=== PATIENT | female | born 1990 | race Caucasian/White ===

== ENCOUNTER 2021-02-23 07:11 | Inpatient (IN) ==
[~2021-02-23 07:11] MED LIST: Azithromycin 500 MG in 0.9 % Sodium Chloride 250 ML IVPB PRN; Famotidine 20 MG/2 ML VIAL IVP PRN; Metoclopramide 10 MG/2 ML VIAL IVP PRN; Naloxone 0.4 MG/ML INJ IVP PRN; Ondansetron 4 MG/2 ML VIAL IVP PRN
[2021-02-23] MEDS ORDERED: ceFAZolin 2,000 MG in 0.9 % Sodium Chloride 100 ML IVPB STA (07:15)
[2021-02-23] MEDS ORDERED: Ringers Solution, Lactated 1,000 ML IVC SCH (07:15)
[2021-02-23] MEDS ORDERED: Oxytocin 20 units/ LR 1000 mL 20 UNIT/1,000 ML BAG IVC SCH ×2 (07:15→11:20)
[2021-02-23] MEDS ORDERED: Lidocaine -MPF 2% 5 ML VIAL ONE (07:20)
[2021-02-23] MEDS ORDERED: *HR* Succinylcholine 200 MG/10 ML VIAL IVP ONE (07:20)
[2021-02-23] MEDS ORDERED: *HR* Propofol 200 MG/20 ML VIAL IVP ONE (07:21)
[2021-02-23] MEDS ORDERED: *HR* FentaNYL (PF) 100 MCG/2 ML VIAL ONE (07:21)
[2021-02-23 07:25] LABS: Basophils # 0.1 K/mcL (0.0-0.2); Basophils % 0.3 %; Eosinophils # 0.1 K/mcL (0.0-0.6); Eosinophils % 0.7 %; Hematocrit 43.1 % (35.3-44.9); Hemoglobin 14.9 g/dL (11.5-15.4); Immature Granulocytes % 0.6 % (0-4); Lymphocytes # 4.5 K/mcL (0.6-4.6); Lymphocytes % 24.6 %; Mean Corpuscular HGB Conc 34.6 g/dL (31.6-35.5); Mean Corpuscular Hemoglobin 31.2 pg (28.0-33.3); Mean Corpuscular Volume 90.4 fL (83.0-100.0); Mean Platelet Volume 10.3 fL (9.4-12.4); Monocytes # 1.1 K/mcL (0.0-1.3); Monocytes % 6.2 %; Neutrophils # 12.4 K/mcL (1.6-8.9); Platelet Count 368 K/mcL (140-400); Red Blood Count 4.77 M/mcL (3.82-4.97); Red Cell Distribution Width 12.9 % (11.5-14.5); Segmented Neutrophils % 67.6 %; White Blood Count 18.4 K/mcL (4.3-11.1)
[2021-02-23] MEDS ORDERED: *HR* Oxytocin 10 UNIT/ML VIAL ONE (07:32)
[2021-02-23] MEDS ORDERED: Ringers Solution, Lactated 1,000 ML ONE (07:32)
[2021-02-23] MEDS ORDERED: Acetaminophen IV 1,000 MG/100 ML BAG IVPB ONE (07:39)
[2021-02-23] MEDS ORDERED: Ketorolac 30 MG/ML VIAL ONE (07:49)
[2021-02-23] MEDS ORDERED: *HR* HYDROMORPHONE 2 MG/ML VIAL ONE (07:56)
[2021-02-23] MEDS ORDERED: Ondansetron 4 MG/2 ML VIAL IVP PRN ×2 (08:04→11:20)
[2021-02-23] MEDS ORDERED: *HR* HYDROmorphone PF 0.5 MG/0.5 ML SYRINGE IVP PRN (08:04)
[2021-02-23] MEDS ORDERED: NIFEdipine Immed Rel 10 MG CAPSULE PO ONE (08:47)
[2021-02-23] MEDS ORDERED: Metoclopramide 10 MG/2 ML VIAL IVP PRN (11:20)
[2021-02-23] MEDS ORDERED: Rho Immune Globulin 1,500 UNIT SYRINGE IM ONE (11:20)
[2021-02-23] MEDS ORDERED: *HR* OxyCODONE Immed Rel 5 MG TABLET PO PRN (11:20)
[2021-02-23 11:26] LABS: Alanine Aminotransferase 27 Units/L (7-52); Aspartate Amino Transferase 30 Units/L (13-39); BUN/Creatinine Ratio 11 (6-26); Blood Urea Nitrogen 9 mg/dL (6-20); Lactate Dehydrogenase 220 Units/L (140-271); eGFR For African Americans > 60 (> 60); eGFR For Non-African Americans > 60 (> 60)
[2021-02-23 12:52] LABS: Amphetamine Screen,Urine Negative ng/mL (Cutoff=1000); Barbiturate Screen,Urine Negative ng/mL (Cutoff=200); Benzodiazepines Screen,Urine Negative ng/mL (Cutoff=200); Cannabinoid Screen,Urine Negative ng/mL (Cutoff = 50); Cocaine Screen,Urine Negative ng/mL (Cutoff= 300); Opiate Screen,Urine Negative ng/mL (Cutoff=300); Phencyclidine Screen,Urine Negative ng/mL (Cutoff=25); Protein/Creatinine Ratio,Urine 0.14 mg/mg (0.00-0.20)
[2021-02-23 13:31] LABS: Influenza A PCR Negative (Negative); Influenza B PCR Negative (Negative); Resp. Syncytial Virus PCR Negative (Negative); SARS-CoV-2 by PCR (In House) Negative (Negative)
[2021-02-23] MEDS: Ibuprofen 600 MG TABLET PO SCH ×2 (15:08→20:21)
[2021-02-23] MEDS: cephALEXin 500 MG CAPSULE PO SCH ×2 (15:08→20:21)
[2021-02-23] MEDS: Acetaminophen 325 MG TABLET PO SCH ×2 (15:08→20:22)
[2021-02-23] MEDS: metroNIDAZOLE 500 MG TABLET PO SCH ×2 (15:09→20:21)
[2021-02-23] MEDS: Simethicone 80 MG TAB.CHEW PO PRN (20:20)
[2021-02-24] MEDS: Acetaminophen 325 MG TABLET PO SCH ×4 (03:47→22:33)
[2021-02-24] MEDS: Ibuprofen 600 MG TABLET PO SCH ×4 (03:47→22:33)
[2021-02-24 04:10] LABS: Basophils % 0.1 %; Eosinophils % 0.1 %; Hematocrit 34.2 % (35.3-44.9); Immature Granulocytes % 0.4 % (0-4); Lymphocytes # 3.1 K/mcL (0.6-4.6); Lymphocytes % 14.4 %; Mean Corpuscular HGB Conc 34.5 g/dL (31.6-35.5); Mean Corpuscular Hemoglobin 31.1 pg (28.0-33.3); Mean Corpuscular Volume 90.2 fL (83.0-100.0); Mean Platelet Volume 10.3 fL (9.4-12.4); Monocytes # 1.5 K/mcL (0.0-1.3); Monocytes % 7.1 %; Neutrophils # 16.7 K/mcL (1.6-8.9); Platelet Count 285 K/mcL (140-400); Red Blood Count 3.79 M/mcL (3.82-4.97); Red Cell Distribution Width 12.9 % (11.5-14.5); Segmented Neutrophils % 77.9 %; White Blood Count 21.4 K/mcL (4.3-11.1)
[2021-02-24 04:13] LABS: Hemoglobin 11.8 g/dL (11.5-15.4)
[2021-02-24] MEDS: cephALEXin 500 MG CAPSULE PO SCH ×3 (08:01→22:32)
[2021-02-24] MEDS: Prenatal Vit/FA 1 EACH TABLET PO SCH (08:01)
[2021-02-24] MEDS: metroNIDAZOLE 500 MG TABLET PO SCH ×3 (08:01→22:32)
[2021-02-24] MEDS: Simethicone 80 MG TAB.CHEW PO PRN (22:31)
[2021-02-25] MEDS: Ibuprofen 600 MG TABLET PO SCH (05:38)
[2021-02-25] MEDS: Acetaminophen 325 MG TABLET PO SCH (05:38)
[2021-02-25] MEDS: Prenatal Vit/FA 1 EACH TABLET PO SCH (07:58)
[2021-02-25 08:10] VITALS: BP 135/89; PULSE 70; TEMP 98.7; O2SAT 96
[2021-02-25] MEDS ORDERED: metroNIDAZOLE 500 MG TABLET PO SCH (09:00)
[2021-02-25] MEDS ORDERED: cephALEXin 500 MG CAPSULE PO SCH (09:00)
== END 2021-02-25 11:06 | disposition home or self-care (01) | DRG 788 ==
LOC: 1NENULAB → 1NENUOBS 10:39
PROVIDERS: ADMIT Obstetrics & Gynecology; ATTEND Obstetrics & Gynecology